=== PATIENT | male | born 1980 | race Caucasian/White ===

== ENCOUNTER 2017-09-21 18:19 | Emergency (ER) | payer OTHER ==
[2017-09-21 18:51] LABS: Bilirubin Small (Negative); Blood, Urine Negative (Negative); Clarity CLEAR (Clear); Glucose, Urine (Dipstick) Negative (Negative); Leukocyte Negative (Negative); Nitrite Negative (Negative); Protein, Urine (Dipstick) 100 mg/dL (Neg-Trace); Specific Gravity, Urine 1.039 (1.002-1.036)
[2017-09-21 18:54] LABS: Pathc Cast-AUWi Flag 0.14 (0-2.49)
[2017-09-21 19:03] LABS: #Eosinphils 0.1 thou/uL (0.0-0.7); #Lymphocytes 1.9 thou/uL (1.20-3.40); #Monocytes 0.4 thou/uL (0.11-0.59); #Neutrophils 4.8 thou/uL (1.40-6.50); %Basophils 0.5 % (0.0-1.0); %Eosinophils 1.2 % (0.0-10.0); %Lymphocytes 26.5 % (21.0-51.0); %Monocytes 5.4 % (0.0-10.0); %Neutrophils 66.4 % (42.0-75.0); Hemoglobin 15.2 g/dL (14.0-18.0); Mean Corpuscular HGB CONC 35.2 g/dL (32.0-36.0); Mean Corpuscular Hemoglobin 31.5 pg (27.0-31.0); Mean Corpuscular Volume 89.5 fl (80.0-94.0); Mean Platelet Volume 6.5 fL (7.4-10.4); Platelet Count 301 thou/uL (130-400); RBC Distribution Width 11.6 % (11.5-14.5); Red Blood Cell (RBC) Count 4.83 mill/uL (4.70-6.10); White Blood Cell (WBC) Count 7.2 thou/uL (4.8-10.8)
[2017-09-21 19:25] LABS: ALT (SGPT) 53 U/L (8-55); AST (SGOT) 47 U/L (5-34); Albumin 4.7 g/dL (3.5-5.0); Alkaline Phosphatase 53 U/L (40-150); Anion Gap 15 mmol/L (10-20); BUN (Urea Nitrogen) 13 mg/dL (8.9-20.6); Bilirubin, Total 0.8 mg/dL (0.2-1.2); Calc. Creatinine Clearance 0 mL/min (70-130); Calcium 9.7 mg/dL (7.8-10.44); Carbon Dioxide 24 mmol/L (22-29); Chloride 104 mmol/L (98-107); Estimated GFR-MDRD 69; Globulin 2.8 g/dL (2.4-3.5); Glucose 119 mg/dL (70-105); Potassium 4.4 mmol/L (3.5-5.1); Protein, Total 7.5 g/dL (6.0-8.3); Sodium 139 mmol/L (136-145)
[2017-09-21 19:25] LABS: Bacteria/HPF Rare-Few HPF (None Seen); Hyaline Casts/LPF NONE SEEN LPF (0-3 Hyaline); RBC/HPF 0-3 HPF (0-3); Squamous Epithelial 0-3 HPF (0-3); WBC/HPF None Seen HPF (0-3)
[2017-09-21] MEDS ORDERED: Ondansetron ODT 4 MG TAB ONE (19:41)
[2017-09-21] MEDS ORDERED: Ketorolac Tromethamine 30 MG/ML VIAL ONE (19:41)
--- NOTE | 2017-09-21 20:11 | CT ---
ABDOMEN CT WITHOUT CONTRAST PELVIC CT WITHOUT CONTRAST 09/21/17 HISTORY: Left flank pain x3 days. COMPARISON: None. TECHNIQUE: Abdomen and pelvic CT are performed without IV or oral contrast. Coronal reformatted images are submi tted for interpretation. FINDINGS: ABDOMEN CT: Lung bases are clear. Heart size is normal. No significant pericardial fluid. The visualized aorta ribeiro s a normal caliber. No periaortic fat stranding. Limited evaluation of the solid organs due to lack of IV contrast. Hypoattenuation of the liver sugge sting hepatic steatosis. No obvious solid organ abnormalities are masses. No gastrohepatic, retrocrural or periportal lymphadenopathy. Gallbladder is unremarkable. Bilaterally, no hydronephrosis, nephrolithiasis, or perinephric fat stranding. Bilateral ureters have a normal caliber. No hydroureter, periureteral fat stranding or ureterolithiasis. No mesenteric mass , lymphadenopathy, free air or free fluid. Limited evaluation of the alimentary canal due to lack of oral contrast. No evidence of bowel obstruc tion. Ileocecal junction is normal. Normal caliber appendix. Scattered fecal material in a nondistend ed, nondilated colon. PELVIC CT: No mass, lymphadenopathy, free air or free fluid. No calcifications within the urinary bladder. No ly tic or blastic lesions in the osseous structures. IMPRESSION: 1. No evidence of obstructive uropathy. 2. No evidence of bowel obstruction. Normal caliber appendix. POS: [facility]
== END 2017-09-21 21:25 | disposition home or self-care (01) ==
LOC: ERS 18:19
DX: R10.9 Unspecified abdominal pain (principal); I10 Essential (primary) hypertension; M10.9 Gout, unspecified; E78.00 Pure hypercholesterolemia, unspecified
CPT/HCPCS: 36415; 74176; 80053; 81003; 81015; 85025; 96372; J1885; Q0162